=== PATIENT | male | born 1965 | race Caucasian/White ===

== ENCOUNTER 2023-04-24 08:09 | Emergency (ER) | payer OTHER, SELFPAY ==
--- NOTE | ~2023-04-24 | XR_ITS ---
EXAMINATION: XR chest 2V DATE: 04/24/2023 08:40 INDICATION: Shortness of breath and cough TECHNIQUE: frontal and lateral views of the chest were obtained. COMPARISON: None FINDINGS: Opacity at the anteromedial right lung base most likely a small right paracardial fat pad and associa ivett atelectasis in the right middle lobe versus less likely pneumonia. No pulmonary edema, pleural ef fusion or pneumothorax. The cardiomediastinal silhouette is normal. There are bridging osteophytes at multiple levels in the spine, consistent with diffuse idiopathic skeletal hyperostosis (DISH). IMPRESSION: 1. Right middle lobe atelectasis versus less likely pneumonia. Reviewed, dictated and finalized at location L.
[2023-04-24 08:24] VITALS: BP 183/108; PULSE 73; RESP 18; TEMP 36.4; O2SAT 98
[2023-04-24 08:27] VITALS: BP 183/108; PULSE 73; RESP 18; TEMP 36.4; O2SAT 98
--- NOTE | 2023-04-24 08:37 | ED.GENADULT ---
HPI - General Adult General Chief complaint: Shortness of Breath/Dyspnea Stated complaint: Shortness of Breath Source: patient Mode of arrival: ambulatory Limitations: no limitations History of Present Illness HPI narrative: Presents for evaluation of respiratory symptoms for the last week. Symptoms include productive cough of clear sputum and shortness of breath. He has some lower extremity swelling as well. No fever, chills, nausea, vomiting, otalgia, sore throat. No recent sick contacts to his knowledge. He smokes half a pack per day. He has an underlying history of hypertension, hyperlipidemia, diabetes, and CHF. He is compliant with lasix 40mg BID. No personal history of DVT. Denies any chest pain. Related Data Home Medications Medication Instructions Recorded Confirmed aspirin 81 mg tablet 81 mg PO DAILY 04/24/23 04/24/23 atorvastatin 40 mg tablet 40 mg PO DAILY 04/24/23 04/24/23 carvedilol 12.5 mg tablet 12.5 mg PO BID 04/24/23 04/24/23 furosemide 40 mg tablet 40 mg PO DAILY 04/24/23 04/24/23 lisinopril 40 mg tablet mg 04/24/23 metformin 500 mg tablet 500 mg PO BID 04/24/23 04/24/23 simvastatin 40 mg tablet 40 mg PO BID 04/24/23 04/24/23 Allergies Allergy/AdvReac Type Severity Reaction Status Date / Time No Known Allergies Allergy Unverified 01/04/19 11:26 Review of Systems Review of Systems: CONSTITUTIONAL: Denies fever, chills, or sweats. EYES: Denies visual changes, redness, or discharge. ENT: Denies rhinorrhea, congestion, sore throat, or otalgia. CARDIOVASCULAR: Reports BLE edema. Denies chest pain, palpitations RESPIRATORY: Reports productive cough of clear sputum and shortness of breath GASTROINTESTINAL: Denies abdominal pain, nausea, vomiting, or diarrhea. GENITOURINARY: Denies dysuria or hematuria. SKIN: Denies rash or itching. MUSCULOSKELETAL: Denies back pain, joint pain, or myalgia. NEUROLOGIC: Denies headache, numbness, dizziness, or weakness. PSYCHIATRIC: Denies anxiety or depression. [facility] Past Medical History Medical History CHF (congestive heart failure) Diabetes Hyperlipidemia Hypertension Surgical History Surgical History No pertinent past surgical history Family History Family History Mother Family history non-contributory Social History Social History Smoking packs per day: 0.5 Smoking cigarettes per day: 10.0 Smoking status: Current every day smoker Alcohol intake: never Substance use: current Substance use type: marijuana Living arrangements: alone Gender identity (if verbalized by the patient): Male Spiritual care concerns: No Exam Narrative: GENERAL: Well-appearing, well-nourished, and in no acute distress. HEAD: Normocephalic, atraumatic. EYES: PERRLA and EOMI. ENT: Nares clear, no rhinorrhea or epistaxis. Mucous membranes moist. Oropharynx without tonsillar hypertrophy exudate or other lesions. Bilateral TMs pearly tadeo nonbulging NECK: Supple. No adenopathy or masses. No carotid bruits or JVD CHEST: Rales and wheezing noted in posterior lung lewis bilaterally HEART: Regular rate and rhythm. No murmur heard. Normal peripheral pulses. ABDOMEN: Soft, nontender, nondistended, normal active bowel sounds. EXTREMITIES: Trace pitting edema to BLE. Normal range of motion. SKIN: Warm, dry, no rash. NEURO: No focal deficits. Alert and oriented x3. PSYCH: Normal mood and affect. Course Course Emergency Course: This is a 57-year-old male who presented for evaluation of respiratory symptoms. CXR concerning for pneumonia. Given solumedrol and neb treatment here. Will dc with prednisone, azithromycin and augmentin. Follow up with primary provider. Go to the ER for worsening symptoms. Pt in a
[2023-04-24] MEDS: methylPREDNISolone SOD SUCC 125 MG VIAL IM (08:45)
[2023-04-24] MEDS: ALBUTEROL SULFATE NEB 2.5 MG/3 ML INH INHALATION (08:47)
[2023-04-24] MEDS: IPRATROPIUM BR 0.02% INH SOLN 0.5 MG/2.5 ML VIAL INHALATION (08:47)
== END 2023-04-24 09:37 | disposition home or self-care (01) ==
PROVIDERS: Emergency Provider Nurse Practitioner
DX: J18.9 Pneumonia, unspecified organism (principal); Z20.822 Contact with and (suspected) exposure to COVID-19; F17.210 Nicotine dependence, cigarettes, uncomplicated; I11.0 Hypertensive heart disease with heart failure; I50.9 Heart failure, unspecified; E11.9 Type 2 diabetes mellitus without complications; E78.5 Hyperlipidemia, unspecified; Z79.84 Long term (current) use of oral hypoglycemic drugs
CPT/HCPCS: 71046; 87426; 94640; 96372; 99213; C9803; G0463; J2930

== ENCOUNTER 2023-08-21 10:02 | Emergency (ER) | payer OTHER, SELFPAY ==
--- NOTE | ~2023-08-21 | XR_ITS ---
Clinical Indication: Cough PA and lateral views of the chest: Comparison: 04/24/2023 Findings: The lungs are clear, without evidence of focal consolidation or pleural effusion. Cardiome diastinal silhouette is within normal limits. Bones and soft tissues are unremarkable. Impression: Normal chest. Reviewed, dictated and finalized at location . TIME OPERATOR Impression: Normal chest.
[2023-08-21 10:06] VITALS: BP 210/118; PULSE 80; RESP 20; TEMP 36.4; O2SAT 97
--- NOTE | 2023-08-21 10:29 | ED.URI ---
HPI - URI/Sore Throat General Chief Complaint: Upper Respiratory Infection Stated Complaint: Shortness of Breath Source: patient and RN notes reviewed History of Present Illness HPI Narrative: 58 yo M presents to urgent care with complaints of cough, wheezing, and SOB x 2 weeks. Pt states the cough is sometimes productive with clear phlegm and other times feels like it's stuck in his chest. Denies any chest pain, back pain, fevers, chills, N/V/D. Pt noted to have HTN in clinic. Pt states he hasn't had a PCP in about a year due to insurance reasons. Pt states he does have some BP meds at home from a year ago. Related Data Allergies Allergy/AdvReac Type Severity Reaction Status Date / Time No Known Allergies Allergy Verified 08/21/23 10:21 Review of Systems Review of Systems: CONSTITUTIONAL: Denies fever, chills, or sweats. EYES: Denies visual changes, redness, or discharge. ENT: Denies otalgia and sore throat CARDIOVASCULAR: Denies chest pain, palpitations, or edema. GASTROINTESTINAL: Denies abdominal pain, nausea, vomiting, or diarrhea. GENITOURINARY: Denies dysuria or hematuria. SKIN: Denies rash or itching. MUSCULOSKELETAL: Denies back pain, joint pain, or myalgia. NEUROLOGIC: Denies headache, numbness, or weakness. Pertinent positives per HPI. [facility] Past Medical History Medical History CHF (congestive heart failure) Diabetes Hyperlipidemia Hypertension Surgical History Surgical History No pertinent past surgical history Family History Family History Mother Family history non-contributory Social History Social History Smoking packs per day: 0.5 Smoking cigarettes per day: 10.0 Smoking status: Current every day smoker Alcohol intake: never Substance use: current Substance use type: marijuana Living arrangements: alone Gender identity (if verbalized by the patient): Male Spiritual care concerns: No Comments At the time of my signature, I reviewed and agree with the nursing past medical, surgical, social, and family history. There is no relevant family history pertinent to the patient complaint. Exam Narrative: GENERAL: This is a well-nourished, well-developed patient, in no apparent distress. HEAD: normocephalic, atraumatic. EYES: Sclera clear/white. Vision is grossly intact. EARS: External ears normal, auditory canals clear and without drainage, TMs normal without perforation. Hearing grossly intact. NOSE: External nose normal with no obvious nasal discharge, nares without redness, no rhinorrhea. THROAT: Mucous membranes moist, posterior pharynx clear. NECK: Neck supple, non-tender without lymphadenopathy, masses or thyromegaly. CARDIOVASCULAR: Regular rate RESPIRATORY: Breath sounds equal bilaterally. + wheezing throughout SKIN: warm, intact with no suspicious lesions or rash, good texture and turgor. NEURO: awake, alert, and oriented to person, place and time. There were no obvious focal neurologic abnormalities. BACK: Nontender without deformity or crepitus. No flank tenderness. Course Course Level of Care: Express Care Visit Vital Signs Vital signs: Vital Signs Temperature 97.6 F 08/21/23 10:06 Pulse Rate 80 08/21/23 10:06 Respiratory Rate 20 08/21/23 10:06 Blood Pressure 210/118 H 08/21/23 10:06 Pulse Oximetry 97 08/21/23 10:06 Oxygen Delivery Room Air 08/21/23 10:06 Temperature 97.6 F 08/21/23 10:06 Pulse Rate 80 08/21/23 10:06 Respiratory Rate 20 08/21/23 10:06 Blood Pressure 210/118 H 08/21/23 10:06 Pulse Oximetry 97 08/21/23 10:06 Oxygen Delivery Room Air 08/21/23 10:06 reviewed MDM - URI/Sore Throat MDM Narrative Medical decision making narrative: Pt's BP was measu
[2023-08-21] MEDS: ALBUTEROL SULFATE NEB 2.5 MG/3 ML INH INHALATION (10:43)
[2023-08-21] MEDS: methylPREDNISolone SOD SUCC 125 MG VIAL IM (10:43)
[2023-08-21] MEDS: IPRATROPIUM BR 0.02% INH SOLN 0.5 MG/2.5 ML VIAL INHALATION (10:43)
[2023-08-21 11:27] VITALS: BP 160/100
== END 2023-08-21 11:27 | disposition home or self-care (01) ==
PROVIDERS: Emergency Provider Nurse Practitioner Family
DX: R06.2 Wheezing (principal); I11.0 Hypertensive heart disease with heart failure; I50.9 Heart failure, unspecified; E11.9 Type 2 diabetes mellitus without complications; E78.5 Hyperlipidemia, unspecified; F17.210 Nicotine dependence, cigarettes, uncomplicated
CPT/HCPCS: 71046; 94640; 96372; 99213; G0463; J2930

== ENCOUNTER 2023-09-05 09:45 | Outpatient (CLI) | payer OTHER, SELFPAY ==
[2023-09-05 19:33] LABS: Basophils Absolute Auto 0.1 K/mm3 (0.0-0.1); Basophils Percent Auto 0.8 % (0.2-1.2); Eosinophils Absolute Auto 0.2 K/mm3 (0-0.3); Hematocrit 54.2 % (42.0-52.0); Hemoglobin 17.5 g/dL (14.0-18.0); Immature Granulocyte Absolute 0.02 K/mm3 (0.00-0.031); Immature Granulocyte Percent A 0.2 % (0-0.5); Lymphocytes Absolute Auto 2.47 K/mm3 (0.9-3.2); Lymphocytes Percent Auto 27.6 % (18.3-44.2); Mean Corpuscular HGB Conc 32.3 g/dl (32-36); Mean Corpuscular Hemoglobin 29.3 pg (26-34); Mean Corpuscular Volume 90.8 fl (80-100); Mean Platelet Volume 11.3 fl (7.4-10.4); Monocytes Absolute Auto 0.5 K/mm3 (0.1-0.6); Neutrophils Absolute Auto 5.7 K/mm3 (1.3-6.7); Neutrophils Percent Auto 63.4 % (45.5-73.1); Platelet Count Result 217 k/mm3 (150-375); Red Blood Count 5.97 M/mm3 (4.6-6.20); Red Cell Distribution Width 13.4 % (11.5-14.5)
[2023-09-05 19:52] LABS: Alanine Aminotransferase 33 U/L (6-50); Albumin Level 4.6 g/dL (3.5-5.1); Alkaline Phosphatase 49 U/L (38-126); Anion Gap 11 mmol/L (8-16); Aspartate Amino Transferase 24 U/L (17-59); Bilirubin,Total 0.7 mg/dL (0.2-1.3); Blood Urea Nitrogen 16 mg/dL (9-20); Calcium 9.5 mg/dL (8.4-10.2); Carbon Dioxide 30 mmol/L (22-30); Chloride 97 mmol/L (98-107); Cholesterol 222 mg/dL (0-200); Estimated Glomerular Filt Rate > 60; Glucose 131 mg/dL (65-110); HDL Direct 46 mg/dL; Magnesium 2.4 mg/dL (1.6-2.3); Potassium 3.9 mmol/L (3.4-5.0); Sodium 138 mmol/L (137-145); Triglycerides 187 mg/dL (<150)
[2023-09-05 20:03] LABS: LDL Cholesterol Direct 135 mg/dL
[2023-09-05 20:16] LABS: Hemoglobin A1C 7.2 % (<5.7)
[2023-09-05 20:18] LABS: Creatinine Urine 65.1 mg/dL
[2023-09-05 20:28] LABS: MALB Creatinine Ratio < 9.2 mg/g (0-30); Microalbumin Urine Random < 6.0 mg/L (0-16.7)
== END 2023-09-05 09:46 | disposition home or self-care (01) ==
PROVIDERS: PCP Nurse Practitioner Adult Health; Visit Provider Nurse Practitioner Adult Health
DX: E11.9 Type 2 diabetes mellitus without complications (principal); I10 Essential (primary) hypertension
CPT/HCPCS: 36415; 80053; 80061; 82043; 83036; 83735; 84443; 85025

== ENCOUNTER 2025-01-12 08:12 | Emergency (ER) | payer OTHER, SELFPAY ==
--- NOTE | ~2025-01-12 | XR_ITS ---
XR chest 2V Ordering provider: Gina Whitfield NP History: 59 years Male with . cough congestion . Comparison: August 21, 2023 FINDINGS: MEDIASTINUM: The cardiac silhouette is not enlarged. LUNGS: No infiltrates, effusions or pneumothorax. OTHER: No free air under the diaphragm. Degenerative changes of the spine. IMPRESSION: No acute cardiopulmonary pathology. Reviewed, dictated and finalized at location A.
[2025-01-12 08:18] VITALS: BP 190/100; PULSE 87; RESP 20; TEMP 36.7; O2SAT 97
--- NOTE | 2025-01-12 08:29 | ED_ITS ---
HPI - URI/Sore Throat General Chief Complaint: Upper Respiratory Infection Stated Complaint: Chest Congestion/Cough/Nasal Congestion Time Seen by Provider: 01/12/25 08:29 Source: patient, RN notes reviewed and old records reviewed Mode of arrival: ambulatory Limitations: no limitations History of Present Illness HPI Narrative: 59 year old male who presents to [facility] care with complaints of cough, nasal congestion, ears feel plugged and has noted some wheezing at times for the past 3 days. Patient reports that he has not had any known fevers, chills or sweats. Patient reports that he does have an inhaler at home and has used his inhaler as needed. Patient admits to continued use of tobacco daily of 1/2 ppd of cigarettes. Patient reports that he has bee taking Benadryl ad also using Flonase daily for his symptoms. Patient reports no known fevers, states some chills no sweats. MD elicited complaint: cough and sore throat Pertinent past history: other (CHF, HTN) Onset (ago): day(s) (3) Consistency: constant Severity: moderate Able to tolerate fluids by mouth: Yes Treatments prior to arrival: other (Benadryl and Flonase and using inhaler) Related Data Allergies Allergy/AdvReac Type Severity Reaction Status Date / Time MOLD Allergy Unknown Unknown Uncoded 01/12/25 08:22 Review of Systems Review of Systems: CONSTITUTIONAL: Reports malaise, chills, sweats, unknown if fever. EYES: Denies visual changes, redness, or discharge. ENT: Reports rhinorrhea, congestion, sinus pain, ears feel plugged and no sore throat. CARDIOVASCULAR: Denies chest pain, palpitations, or edema. RESPIRATORY: Reports cough.? states some dyspnea with exertion. GASTROINTESTINAL: Denies abdominal pain, nausea, vomiting, diarrhea SKIN: Denies rash or itching. MUSCULOSKELETAL: Denies myalgia. NEUROLOGIC: Denies headache. All systems reviewed & are unremarkable except as noted in HPI and below PMFSH Past Medical History Medical History Heart disease CHF exacerbation Allergies Asthma Diabetes Hyperlipidemia Hypertension CHF (congestive heart failure) Surgical History Surgical History No pertinent past surgical history Family History Family History Mother Family history non-contributory Father Diabetes mellitus Hypertension Heart disease Sibling Cancer Social History Social History Smoking packs per day: 0.5 Smoking cigarettes per day: 10.0 Smoking status: Current every day smoker Alcohol intake: never Substance use: former Substance use type: marijuana Lack of Transportation: No Lack of Food: Never True Concerned About Future Housing: No Difficulty Paying for Meds: YES Currently Unemployed: No Education: High School Diploma/GED Difficulty w/ Childcare or Family Care: No Living arrangements: alone Occupation/Education: occupation Additional occupation/education comments: [employer] Gender identity (if verbalized by the patient): Male Spiritual care concerns: No Agree to blood products: Yes Comments At time of signature, agree with nursing past medical, surgical, social and family history. There is no relevant family history pertinent to the presenting complaint Exam Narrative: GENERAL:Chronic ill -appearing, well-nourished, and in no acute distress. HEAD: Normocephalic EYES: PERRLA, conjunctivae clear ENT: Nares clear, turbinates edematous and erythematous, clear discharge. Mucous membranes moist. TM pearly tadeo with dull light reflex bilaterally; no tragal tenderness. Oropharynx erythematous without lesions. Tonsils not enlarged and without exudate, no drooling, no hoarseness, no trismus, uvula midline.post nasal drainage NECK: Supple. No lymphadenopathy CHEST: Scattered wheezing in bases on auscultation, breath sounds equal.+ wheezing, no rhonchi, rales, or stridor. No respiratory distress, speaks in full sentences.cough which is productive at times, SAO2 97% on room air HEART: Regular rate and rhythm. No murmur heard. SKIN: Warm, dry, no rash. NEURO: Alert and oriented x3. PSYCH: Normal mood and affect Course Course Emergency Course: Patient is aware of diagnosis, understands and agrees to treatment plan.? Anticipatory guidance given.? Patient agrees to follow-up as directed and is aware of reasons to seek care at the emergency department. Portions of this record may have been created with voice recognition software Level of Care: Express Care Visit Vital Signs Vital signs: Vital Signs Temperature 36.7 C 01/12/25 08:18 Pulse Rate 87 01/12/25 08:18 Respiratory Rate 20 01/12/25 08:18 Blood Pressure 190/100 H 01/12/25 08:18 Pulse Oximetry 97 01/12/25 08:18 Oxygen Delivery Room Air 01/12/25 08:18 Temperature 36.7 C 01/12/25 08:18 Pulse Rate 87 01/12/25 08:18 Respiratory Rate 20 01/12/25 08:18 Blood Pressure 162/96 H 01/12/25 08:34 Pulse Oximetry 97 01/12/25 08:18 Oxygen Delivery Room Air 01/12/25 08:18 Reviewed MDM - URI/Sore Throat MDM Narrative Medical decision making narrative: Differential diagnosis considered: Mike virus, strep pharyngitis, allergic rhinitis, upper respiratory tract infection, sinusitis, rhinosinusitis, nasopharyngitis. viral pharyngitis, otitis media, otitis externa, pneumonia, bronchitis, viral cough syndrome, viral syndrome, and influenza.? Exam findings show no acute concerns or changes; patient is non-toxic appearing and is in no distress.? Patient is appropriate for outpatient treatment and follow-up. Differential Diagnosis Differential diagnosis: Likely upper respiratory infection, viral infection, bronchitis and other (cough and congestion) Medical Records Attestation: I reviewed the patient's medical records. Lab Data Attestation: I reviewed the patient's lab results. Imaging Data My impression: no acute cardiopulmonary pathology Radiologist's impression: [place] [address] XRay Report Signed Patient: Tony Martinez : 1965 MR#: [id number] Age: 59 Acct:[id number] Loc: [facility] ADM Date: 01/12/25Attending Dr: Ordering Physician: Gina Whitfield APRN Date of Service: 01/12/25 Procedure(s): XR chest 2V Accession Number(s): [id number] cc: Gina Whitfield APRN; UNKNOWN,DOCTOR~ XR chest 2V Ordering provider: Gina Whitfield NP History: 59 years Male with . cough congestion . Comparison: August 21, 2023 FINDINGS: MEDIASTINUM: The cardiac silhouette is not enlarged. LUNGS: No infiltrates, effusions or pneumothorax. OTHER: No free air under the diaphragm. Degenerative changes of the spine. IMPRESSION: No acute cardiopulmonary pathology. Reviewed, dictated and finalized at location A. Please be advised this is a medical document. It is intended for [id number] communication. It is written in medical language and may contain unfamiliar abbreviations or verbiage. Medical documents are intended to carry relevant information, facts as evident, and the clinical opinion of the practitioner at the time of the encounter. This report may have been done utilizing a voice recognition system. Attempts have been made to correct errors. However, there may be uncorrected grammatical, spelling, and recognition errors present. The file time of this note does not necessarily represent the time of service. Dictated By: Lenny Noble MD 01/12/25 0850 Signed By: <Electronically signed by Lenny Noble MD in OV> Critical Care Time Critical Care Time Critical Care Time: No Discharge Plan Discharge Clinical Impression: Bronchitis Patient Disposition: Home Condition: Stable Instructions: Antibiotic Form, Acute Bronchitis (ED) Additional Instructions: Increase fluids especially juices and water [id number] cough and cold medicine of your choice for your symptoms Zyrtec Claritin or Minnie daily include Coricidin brand decongestant Continue your inhaler/nebulizer as directed Steroids as directed--take with food heat to the face 20-30 minutes 4-6 times a day for pain Salt water gargles, throat lozenges or throat sprays as desired Antibiotic as directed--finished the medication If your symptoms persist, change or worsen significantly before you can contact your personal physician then please, without delay, go to the emergency department for further evaluation. Follow-up with PCP in 7-10 days or sooner if needed Follow up with PCP soon in regards to your blood pressure which is elevated above threshold for referral. Blood pressure above 120/80 may indicate pre- hypertension. Repeat pressure 162/96 Patient Language: Romansh Prescriptions: New prednisone 20 mg tablet 20 mg PO BID Qty: 10 0RF Rx Instructions: Take with food taken a.m. and early p.m. before 6 azithromycin 250 mg tablet See Rx Instructions .ROUTE .COMPLEX Qty: 6 0RF Rx Instructions: For 250 mg dose pack: take 500 mg today (day 1), then 250 mg for 4 days (days 2-5) No Action carvedilol 12.5 mg tablet 12.5 mg PO Q12H Qty: 180 3RF Rx Instructions: must administer with a meal/food simvastatin 40 mg tablet See Rx Instructions .ROUTE .COMPLEX Qty: 90 3RF Dose Instruction: TAKE 1 TABLET BY MOUTH EVERY DAY Rx Instructions: TAKE 1 TABLET BY MOUTH EVERY DAY albuterol sulfate 90 mcg/actuation HFA aerosol inhaler See Rx Instructions .ROUTE .COMPLEX Qty: 8.5 6RF Dose Instruction: INHALE 2 PUFFS 4 TIMES A DAY NEEDED FOR SHORTNESS OF BREATH OR FOR WHEEZE Rx Instructions: INHALE 2 PUFFS 4 TIMES A DAY NEEDED FOR SHORTNESS OF BREATH OR FOR WHEEZE furosemide 40 mg tablet 40 mg PO DAILY Qty: 90 3RF lisinopril 40 mg tablet 40 mg PO DAILY Qty: 90 3RF metformin 500 mg tablet 500 mg PO BID Qty: 180 3RF Follow-up/Referrals: UNKNOWN,DOCTOR [Primary Care Provider] - Stand Alone Forms: Work/School Release IP Time of Disposition: 09:00 Quality Madina Coma Scale Eyes: Open Verbal: Oriented and Alert Motor: Follows Commands Madina Coma Total Score: 15
[2025-01-12 08:34] VITALS: BP 162/96
--- OUTSIDE RECORDS SUMMARY | 2025-01-12 08:36 | XMS_ITS | Encounter Summary ---
Author Organization [facility] Address [address] [place] [id number] Care Team Providers Care [employer] Name Role Phone Parish Ruiz MD Primary Care Provider [phone] Miscellaneous, Not In File Primary Care Provider Unavailable Bob Avitia MD Primary Care Provider [phone] Encounter Details Date Type Department Care Team (Late st Contact Info) Description 12/25/2016 Orders Only [facility] MD [address] [place] [id number] Social History Tobacco Use Types Packs/Day Years Used Date Smoking Tobacco: Heavy Smoker Comments:Smoking History Pac ks/day: 1 Packs Alcohol Use Standard Drinks/Week Comments Yes 0 (1 standard drink = 0.6 oz pur e alcohol) Sex and Gender Information Value Date Recorded Sex Assigned at Not on file 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 Historical Provider [facility] Final Result documented in this encounter Visit Diagnoses Not on filedocumented in this encounter Care Teams [employer] Relationship Specialty Start Date End Date [place] [id number] PCP - General 12/25/16 09/02/20 Miscellaneous, Not In File PCP - General 09/03/2009/07 Bob Avitia MD [address] [place] [address] PCP - General Family Medicine 09/08/20 documented as of this encounter
--- OUTSIDE RECORDS SUMMARY | 2025-01-12 08:36 | XMS_ITS | Clinical Summary ---
Author Organization [facility] Address [address] [place] [address] Phone Care Team Providers Care Executive Sales Assistant Name Role Phone Parish Ruiz MD Unavailable [phone] Allergies No known active allergies Medications aspirin EC 81 MG Tablet Delayed Response Take 81 mg by mouth daily. Active furosemide (LASIX) 20 MG TabletIndication s:Chronic obstructive pulmonary disease, unspecified COPD type (HCC) Take 1 Tab by mouth daily. 90 Tab 1 0 Active lisinopril (PRINIVIL, ZESTRIL) 40 MG TabletIndication s:Chronic obstructive pulmonary disease, unspecified COPD type (HCC) Take 1 Tab by mouth daily. 90 Tab 1 0 Active metoprolol succinate (TOPROL-XL) 200 MG TABLET SR 24 HRIndications:Ch ronic obstructive pulmonary disease, unspecified COPD type (HCC) Take 1 Tab by mouth daily. 90 Tab 1 0 Active spironolactone (ALDACTONE) 25 MG TabletIndication s:Chronic obstructive pulmonary disease, unspecified COPD type (HCC) Take 1 Tab by mouth daily. 90 Tab 1 0 Active albuterol 108 (90 Base) MCG/ACT Aerosol SolutionIndicati ons:Chronic obstructive pulmonary disease, unspecified COPD type (HCC) take 2 Puffs by inhalation every 4 hours as needed (shortness of breath). 2 Inhaler 2 0 Active metFORMIN (GLUCOPHAGE) 500 MG TabletIndication s:Type 2 diabetes mellitus with hyperglycemia, without long-term current use of insulin (HCC) Take 1 Tab by mouth 2 times daily (with meals). 180 Tab 3 0 Active Blood Glucose Monitoring Suppl DeviceIndication s:Type 2 diabetes mellitus with hyperglycemia, without long-term current use of insulin (HCC) Diagnosis: Diabetes type 2 Blood testing frequency: once a day 1 Each 0 Active Glucose Blood (BLOOD GLUCOSE TEST STRIPS) StripIndications :Type 2 diabetes mellitus with hyperglycemia, without long-term current use of insulin (HCC) Use to test blood sugar once daily as directed. 100 Each 3 0 Active Lancets MiscIndications: Type 2 diabetes mellitus with hyperglycemia, without long-term current use of insulin (HCC) Use as directed 100 Lancet 3 0 Active Lancet Device MiscIndications: Type 2 diabetes mellitus with hyperglycemia, without long-term current use of insulin (HCC) Use as directed to test blood sugar. 1 Each 0 Active atorvastatin (LIPITOR) 40 MG TabletIndication s:Type 2 diabetes mellitus with hyperglycemia, without long-term current use of insulin ([facility]) Take 1 Tab by mouth daily. 30 Tab 11 0 Active Active Problems Problem Noted Date Diagnosed Date COPD (chronic obstructive pulmonary disease) Erythrocytosis 02/04/2020 Type 2 diabetes mellitus 02/04/2020 Asthma 01/29/2020 Noncompliance 06/24/2019 CHF (congestive heart failure) 01/23/2019 HTN (hypertension), benign 11/27/2018 Overview (01/23/2019): Last Assessment & Plan: Monitor. Will adjust meds depending on echo findings. Lisinopril increased 3/7 Tobacco use 07/13/2016 Overview (01/23/2019): Tobacco use Resolved Problems Problem Noted Date Diagnosed Date Resolved Date Prediabetes 02/04/2020 02/04/2020 Immunizations Immunization Administration Dates Next Due Pneumococcal Vaccine Adult - 23 Valent 9 Family History Medical History Relation Name Comments Diabetes Father Heart Attack Father Hypertension Father Diabetes Mother Hypertension Mother Relation Name Status Comments Father Mother Social History Tobacco Use Types Packs/Day Years Used Date Smoking Tobacco: Every Day Cigarettes Smokeless Tobacco: Never Tobacco Cessation:Ready to Q uit: No; Counseling Given: Yes Alcohol Use Standard Drinks/Week Comments Not Currently 5 (1 standard drink = 0.6 oz pur e alcohol) rarely PHQ-2 Answer Date Recorded Total Score - Questions 1-9 0 01/22 Sex and Gender Information Value Date Recorded Sex Assigned at Not on file Legal Sex Male 12:21 AM CDT Gender Identity Not on file Sexual Orientation Not on file Last Filed Vital Signs Vital Sign Reading Time Taken Comments Blood Pressure 112/76 03/12/2020 8:10 AM CDT Pulse 65 03/12/2020 8:10 AM CDT Temperature 36.5 C (97.7 F) 03/12/2020 8:10 AM CDT Respiratory Rate 16 03/12/2020 8:10 AM CDT Oxygen Saturation 93% 03/12/2020 8:10 AM CDT Inhaled Oxygen Concentration - - Weight 113.5 kg (250 lb 3.2 oz) 03/12/2020 8:10 AM CDT Height 172.7 cm (5' 8 ) 03/12/2020 8:10 AM CDT Body Mass Index 38.04 03/12/2020 8:10 AM CDT Plan of Treatment Health Maintenance Due Date Last Done Comments Diabetes: Eye Exam 1965 Diabetes: Foot Exam 1965 Hepatitis C Virus (HCV) Screening 1965 TdaP Immunization 1965 Hepatitis B Immunization (1 of 3 - 19+ 3-dose series) 1984 Colonoscopy 2010 Colorectal Cancer Screening 2010 Cologuard 2015 Immunochemical Fecal Occult Blood 2015 Zoster Immunization (1 of 2) 2015 Pneumococcal Immunization (50+ years) (2 of 2 - PCV) 02/13/2020 02/12/2019 Diabetes: Hemoglobin A1c 08/06/2020 020, 06/24/2019, 11/28/2018 Diabetes: Nephropathy Screening 02/03/2021 02/04/2020, 02/04/2020, 06/24/2019, Additional history exists Influenza Immunization (#1) 2024 SARS-COV-2 Immunization ( - season) 2024 Respiratory Syncytial Virus (RSV) Immunization (Adult) (1 - 1-dose 75+ series) 2040 Pneumococcal Immunization Combined Discontinued 02/12/2019 PSA Discussion Discontinued 06/24/2019 Meningococcal Immunization (ACWY) Aged Out No longer eligible based on patient's age to complete this topic Rotavirus Immunization Aged Out No lo nger eligible based on patient's age to complete this topic Procedures Procedure Name Priority Date/Time Associated Diagnosis Comments CMP (COMPREHENSIVE METABOLIC PANEL) Routine 02/04/2020 9:20 AM CDT HTN (hypertension), benign HEMOGLOBIN A1C W/ ESTIMATED GLUCOSE Routine 02/04/2020 9:20 AM CDT Prediabetes PSA SCREEN Routine 06/24/2019 9:25 AM CDT Prostate cancer screening from Last 3 Months or Most Recently Relevant to Health Maintenance Results * (ABNORMAL) HEMOGLOBIN A1C W/ ESTIMATED GLUCOSE (02/04/2020 9:20 AM CDT) HGB-A1C 7.0(H) 4.0 - 6.0 % 02/04/2020 12:24 PM CDT [facility] Est Average Glucose 154.2 mg/dL 02/04/2020 12:24 PM CDT [facility] Blood specimen (specimen) Venipuncture / Unknown 02/04/2020 9:20 AM CDT 02/04/2020 9:20 AM CDT Narrative [facility] - 02/04/2020 12:24 PM CDT HEMOGLOBIN A1C: DIABETIC PATIENTS: WELL-CONTROLLED: 6.2 - 7.0 INTERMEDIATE WELL-CONTROLLED: 7.0 - 9.0 POORLY-CONTROLLED: >9.0 us Dalton Chahal ADMITTING SUPERVISOR, STORAGE BATTERY INSPECTOR AND TESTER CHEMISTRY ORDERA BLES Final Result [facility] [address] [place] [address] * (ABNORMAL) CMP (COMPREHENSIVE METABOLIC PANEL) (02/04/2020 9:20 AM CDT) SODIUM 139 136 - 144 mmol/L 02/04/2020 1:00 PM [facility] POTASSIUM 4.6 3.5 - 5.1 mmol/L 02/04/2020 1:00 PM [facility] CHLORIDE 100 100 - 110 mmol/L 02/04/2020 1:00 PM [facility] CO2, VENOUS 29 22 - 32 mmol/L 02/04/2020 1:00 PM [facility] ANION GAP 14.6 8.0 - 20.0 mmol/L 02/04/2020 1:00 PM T [facility] GLUCOSE 117(H) 70 - 99 mg/dL 02/04/2020 1:00 PM [facility] BUN 14 6 - 20 mg/dL 02/04/2020 1:00 PM [facility] CREATININE, BLOOD 0.84 0.80 - 1.30 mg/dL 02/04/2020 1:00 PM [facility] BUN/CREATININE RATIO 17 12 - 20 ratio 02/04/2020 1:00 PM [facility] TOTAL PROTEIN 7.8 6.0 - 8.3 g/dL 02/04/2020 1:00 PM [facility] ALBUMIN 4.5 3.5 - 5.2 g/dL 02/04/2020 1:00 PM [facility] Comment: The colormetric methods used for the determination of Albumin may lead to falsely elevated test results in patients suffering from renal failure or insufficiency due to interference with other proteins. A/G RATIO 1.4 1.0 - 2.0 02/04/2020 1:00 PM [facility] CALCIUM 9.9 8.9 - 10.3 mg/dL 02/04/2020 1:00 PM [facility] T BILI 0.3 <=1.2 mg/dL 02/04/2020 1:00 PM [facility] SGOT (AST) 15 <=40 U/L 02/04/2020 1:00 PM [facility] SGPT (ALT) 23 <=41 U/L 02/04/2020 1:00 PM CDT [facility] ALKALINE PHOSPHATASE 59 40 - 130 U/L 02/04/2020 1:00 PM CDT [facility] GFR, EST. NONAFRICAN >60 >=60 02/04/2020 1:00 PM CDT [facility] GFR, EST. >60 >=60 020 1:00 PM CDT [facility] Comment: Creatinine Clearance is the preferred criteria for selecting drug dose adjustments in renally impaired patients. The GFR is provided as additional pertinent clinical information. GFR is reported in mL/min/1.73 sq m. Blood specimen (specimen) Venipuncture / Unknown 02/04/2020 9:20 AM CDT 02/04/2020 9:20 AM CDT Dalton Chahal APRN, MYKEL CHEMISTRY ORDERA BLES Final Result Performing Organization Address City/[facility]/ZIP Co de Phone Number [facility] [address] [place] [address] * PSA SCREEN (06/24/2019 9:25 AM CDT) PSA SCREEN, TOTAL 0.53 <=4.00 ng/mL 06/24/2019 3:34 PM CDT [facility] Blood specimen (specimen) Venipuncture / Unknown 06/24/2019 9:25 AM CDT 06/24/2019 1:22 PM CDT Narrative [facility] - 06/24/2019 3:34 PM CDT PSA NOTE: The PSA value should be used in conjunction with information available from clinical evaluation and other diagnostic procedures. Dalton Chahal APRN, MYKEL CHEMISTRY ORDERA BLES Final Result [facility] [address] [place] [address] from Last 3 Months or Most Recently Relevant to Health Maintenance Insurance Care Teams Executive Sales Assistant Relationship Specialty Start Date End [place] [address] Internal Medicine 12/25/16
--- OUTSIDE RECORDS SUMMARY | 2025-01-12 08:36 | XMS_ITS | Encounter Summary ---
Author Organization [facility] Address [address] [facility] [address] [place] [address] Care Team Providers Care Hot Mill Observer Name Role Phone Parish Ruiz MD Primary Care Provider [phone] Miscellaneous, Not In File Primary Care Provider Unavailable Bob Avitia MD Primary Care Provider [phone] Encounter Details Date Type Department Care Team (Late st Contact Info) Description 12/27/2016 Orders Only [facility] And[facility] Dave MD [address] [place] [id number] Social History Tobacco Use Types Packs/Day Years Used Date Smoking Tobacco: Heavy Smoker Comments:Smoking History Pac ks/day: 1 Packs Alcohol Use Standard Drinks/Week Comments Yes 0 (1 standard drink = 0.6 oz pur e alcohol) Sex and Gender Information Value Date Recorded Sex Assigned at Not on file Legal Sex Male 4:56 PM MEDIA PRODUCTION MANAGER Gender Identity Not on file Sexual Orientation Not on file documented as of this encounter Plan of Treatment Not on file documented as of this encounter Procedures Procedure Name Priority Date/Time Associated Diagnosis Comments CARDIOLOGY REPORT 12/27/2016 CARDIOLOGY REPORT 12/27/2016 documented in this encounter Results * CARDIOLOGY REPORT (12/27/2016) Anatomical Region Laterality Modality Other Narrative 12/27/2016 Ordered by an unspecified provider. Historical Provider [facility] TAM[facility]ENDOZA Final Result * CARDIOLOGY REPORT (12/27/2016) Anatomical Region Laterality Modality Other Narrative 12/27/2016 Ordered by an unspecified provider. us Historical Provider [facility] TAMAR MENDOZA Final Result documented in this encounter Visit Diagnoses Not on filedocumented in this encounter Care Teams Hot Mill Observer Relationship Specialty Start Date End Date Parish Ruiz MD [address] [place] [address] PCP - General 12/25/16 09/02/20 Miscellaneous, Not In File PCP - General 09/03/2009/07 Bob Avitia MD [address] [place] [address] PCP - General Family Medicine 09/08/20 documented as of this encounter
--- OUTSIDE RECORDS SUMMARY | 2025-01-12 08:36 | XMS_ITS | Clinical Summary ---
Author Organization [facility] Address [address] [place] [address] Care Team Providers Care Physical Chemist Name Role Phone Bob Avitia MD Primary Care Provider [phone] Allergies Active Allergy Reactions Criticality Noted Date Comments Mold Medications ivabradine (CORLANOR) 5 mg tabletIndicatio ns:chronic heart failure Take 1 tablet (5 mg total) by mouth 2 (two) times a day with meals 60 tablet 9 Active Additional Information Patient not taking.Reported on 12/06/2018 spironolactone (ALDACTONE) 25 mg tabletIndicatio ns:Acute combined systolic and diastolic congestive heart failure (HCC) Take 1 tablet (25 mg total) by mouth daily 90 tablet 0 Active Additional Information Patient not taking.Reported on 10/06/2020 aspirin 81 mg enteric coated tablet Take 1 tablet (81 mg total) by mouth daily 30 tablet 11 1 Active carvediloL (COREG) 12.5 mg tabletIndicatio ns:HTN (hypertension), benign,Chronic HFrEF (heart failure with reduced ejection fraction) (HCC) Take 1 tablet (12.5 mg total) by mouth 2 (two) times a day with meals 180 tablet 3 1 Active furosemide (LASIX) 40 mg tabletIndicatio ns:Chronic HFrEF (heart failure with reduced ejection fraction) (HCC) Take 1 tablet (40 mg total) by mouth 2 (two) times a day 180 tablet 3 1 Active lisinopriL (PRINIVIL,ZESTR [place]) 40 mg tabletIndicatio ns:Type 2 diabetes mellitus without complication, without long-term current use of insulin (HCC),HTN (hypertension), benign,Chronic HFrEF (heart failure with reduced ejection fraction) (HCC) Take 1 tablet (40 mg total) by mouth 2 (two) times a day 180 tablet 3 1 Active metFORMIN (GLUCOPHAGE) 500 mg tabletIndicatio ns:Type 2 diabetes mellitus without complication, without long-term current use of insulin (HCC) Take 1 tablet (500 mg total) by mouth 2 (two) times a day with meals 180 tablet 3 1 Active simvastatin (ZOCOR) 40 mg tabletIndicatio ns:Type 2 diabetes mellitus without complication, without long-term current use of insulin (HCC),Chronic HFrEF (heart failure with reduced ejection fraction) (HCC) Take 1 tablet (40 mg total) by mouth nightly 90 tablet 3 1 Active Active Problems Problem Noted Date Diagnosed Date Class 2 severe obesity due t o excess calories with serious comorbidity and body mass index (BMI) of 36.0 to 36.9 in adult 10/06/2020 Assessment & Plan (10/06/2020 4:00 PM MEDICAL OFFICER PSYCHIATRY): Discussed with patient importance of weight control through either activity and or portion control Reports patient to continue to watch portions and choose low-calorie food Type 2 diabetes mellitus 02/04/2020 Assessment & Plan (04/26/2021 9:18 AM CDT): Stable, improving Patient has made some dietary changes, including eating lean meats as well as using air prior A1c today is at target of 6.5%; will restart metformin 500 mg b.i.d. Assessment & Plan (12/07/2020 11:55 AM CDT): Last a1c was at 6.8, without medications; encouraged continued dietary changes for low car diet; will start metformin 500 mg BID to help control blood sugars -noted to have elevated microalbumin in urine Assessment & Plan (10/06/2020 3:59 PM MEDICAL OFFICER PSYCHIATRY): Patient is eating a generally low-carbohydrate diet, encouraged patient to continue low-carbohydrate after he is able to afford larger meal Assessment & Plan (09/08/2020 4:21 PM MEDICAL OFFICER PSYCHIATRY): a1c is 6.8, encourage diet control as patient is not currently taking medications, continue to monitor COPD (chronic obstructive pulmonary disease) Assessment & Plan (04/26/2021 9:19 AM CDT): Stable, not well controlled May contribute to patient's dyspnea on exertion Will continue to monitor, evaluate when patient will be helpful for PFTs and can start COPD medication if necessary Assessment & Plan (09/08/2020 4:21 PM MEDICAL OFFICER PSYCHIATRY): Encourage smoking cessation Tobacco dependence due to cigarettes 12/06/2018 Assessment & Plan (04/26/2021 9:19 AM CDT): Currently smoking about 1/2 pack per day; encouraged patient to continue to look at complete cessation At this time will not start any medications Assessment & Plan (10/06/2020 3:59 PM MEDICAL OFFICER PSYCHIATRY): Improving, patient reports he has time to 6 cigarettes per day, will continue to encourage complete cessation Assessment & Plan (09/09/2020 3:20 PM MEDICAL OFFICER PSYCHIATRY): Not well controlled, patient continues to smoke, not interested in medication therapy at this time Chronic HFrEF (heart failure with reduced ejection fraction) ([facility]) 11/27/2018 Assessment & Plan (04/26/2021 9:18 AM CDT): NYHA function capacity II 2, objective assessment C Last echo performed in 2019 demonstrates LVEF of 20-30%, and patient reports some orthopnea; can work for 1-2 hours before requiring break, job is somewhat physically demanding Currently patient is not taking any medications due to insurance not appropriately covering medications All medications sent to [facility], reviewed [facility] 4 dollar list to ensure medications are included Will continue carvedilol 12.5, furosemide 40 mg b.i.d., lisinopril 40 mg At this time will hold spironolactone due to cost Will hold ivabradine as patient is not having any anginal symptoms Assessment & Plan (12/07/2020 11:57 AM CDT): No evidence of exacerbation or volume overload; encourage patient to continue with volume rstriction; will continue to monitor status as patient restarts medications -patient does not have limitations in activity NYHA: Class I Assessment & Plan (10/06/2020 3:58 PM MEDICAL OFFICER PSYCHIATRY): Not currently taking medication as patient cannot afford co-pay is Patient does not have any signs or symptoms of volume overload Will continue to monitor follow-up in 2 months after patient has been able to restart medications Assessment & Plan (09/08/2020 4:20 PM MEDICAL OFFICER PSYCHIATRY): No evidence of acute exacerbation, but not currently taking medications and bp is eelvated -restart medication, discussed importance of cardioprotective nature of carvedilol and lisnopril -encourage medication use, and will re-evaluate Assessment & Plan (11/29/2018 6:03 PM MEDICAL OFFICER PSYCHIATRY): Type unknown, suspect diastolic dysfunction. Echo pending. Pt still requiring treatment and changed to inpt status 11/27 Echo shows both systolic and diastolic dysfunction. EF 20%. Already on JESSICA and B-az and gradually improving. Cont current treatment. Change in EF and cardiology recommended cath. Done 11/29 HTN (hypertension), benign 11/27/2018 Assessment & Plan (04/26/2021 9:18 AM CDT): Not well controlled, will prescribe medicines based on [employer] list Coreg 12.5 mg b.i.d., lisinopril 40 mg b.i.d. Assessment & Plan (12/07/2020 11:55 AM CDT): Stable, has not been able to start medications, but blood pressure was well controlled today, will continue to monitor, encourage patient to start medications as he can -may have to adjust dose as patient's health changes. Assessment & Plan (10/06/2020 3:58 PM MEDICAL OFFICER PSYCHIATRY): Blood pressure remains elevated today at 168/108, patient has not been able to start medications as he cannot afford copays Will follow-up in 2 months after patient has been able to restart all of his medications Assessment & Plan (09/08/2020 4:19 PM MEDICAL OFFICER PSYCHIATRY): Not well controlled, bp elevated, not currently taking medications Assessment & Plan (11/28/2018 4:50 PM MEDICAL OFFICER PSYCHIATRY): Monitor. Will adjust meds depending on echo findings. Lisinopril increased 3/7 Abnormal finding on diagnostic imaging of extrem ity 07/13/2016 Overview (12/28/2016): Abnormal x-ray of extremity Resolved Problems Problem Noted Date Diagnosed Date Resolved Date Acute respiratory failure with hypoxia 11/27/2018 09/08/2020 Assessment & Plan (11/27/2018 9:08 PM MEDICAL OFFICER PSYCHIATRY): Wean as tolerated. Most likely due to CHF Tobacco use 07/13/2016 09/08/2020 Overview (12/28/2016): Tobacco use Immunizations Immunization Administration Dates Next Due Influenza, Unspecified 10/06/2020(Deferr ed: Patient Refused),09/08/2020(Deferred: Patient Refused),09/24/2019(Deferred: Patient Refused),09/24/2019(Deferred: Patient Refused),01/06/2019(Deferred: Patient Refused),12/06/2018(Deferred: Patient Refused),12/06/2018(Deferred: Patient Refused),09/24/2017(Deferred: Patient Refused),09/24/2017(Deferred: Patient Refused),09/24/2017(Deferred: Patient Refused) Pneumococcal Polysaccharide PPV23 02/12/2019 Medical History Medical History Date Comments Hypertension COPD (chronic obstructive pulmonary disease) (HC C) Family History Medical History Relation Name Comments Bladder Cancer Father Cancer, bladd er; Diabetes Father Hypertension Father Diabetes Mother Diabetes mellit us; Relation Name Status Comments Father Mother Alive Social History Tobacco Use Types Packs/Day Years Used Date Smoking Tobacco: Every Day Cigarettes 0.5 30 Started: 11/22/1988; Last attempted to quit: 11/22/2018 Smokeless Tobacco: Never Tobacco Cessation:Ready to Q uit: Yes; Counseling Given: Yes Comments:2 packs per week Alcohol Use Standard Drinks/Week Comments Not Currently 8 (1 standard drink = 0.6 oz pur e alcohol) AUDIT-C Answer Date Recorded Q1: How often do you have a drink containing alc ohol? Monthly or less 04/26/2021 Q2: How many drinks containi ng alcohol do you have on a typical day when you are drinking? 5 or 6 04/26/2021 Q3: How often do you have si x or more drinks on one occasion? Never 04/26/2021 PHQ-2 Answer Date Recorded PHQ-2 Total Score (If total score is 3 or more points, staff should administer the PHQ-9) 0 04/26/2021 Sex and Gender Information Value Date Recorded Sex Assigned at Not on file Legal Sex Male 4:56 PM MEDICAL OFFICER PSYCHIATRY Gender Identity Not on file Sexual Orientation Not on file Obstetrics History Last Filed Vital Signs Vital Sign Reading Time Taken Comments Blood Pressure 152/94 04/26/2021 8:24 AM CDT Pulse 85 04/26/2021 8:24 AM CDT Temperature 36.8 C (98.3 F) 04/26/2021 8:24 AM CDT Respiratory Rate 16 10/06/2020 2:05 PM MEDICAL OFFICER PSYCHIATRY Oxygen Saturation 95% 04/26/2021 8:24 AM CDT Inhaled Oxygen Concentration - - Weight 111.8 kg (246 lb 6.4 oz) 04/26/2021 8:24 AM CDT Height 172.7 cm (5' 8 ) 04/26/2021 8:24 AM CDT Body Mass Index 37.46 04/26/2021 8:24 AM CDT Plan of Treatment Not on file Insurance [employer] CHOICE Advance Directives For more information, please contact: [phone] * Full Code (Latest Code Status on File) Date Activated Date Inactivated Comments 11/26/2018 8:03 PM 11/30/2018 8:15 PM Care Teams Physical Chemist Relationship Specialty Start Date End Date Bob Avitia MD [address] [place] [address] PCP - General Family Medicine 09/08/20
--- OUTSIDE RECORDS SUMMARY | 2025-01-12 08:37 | XMS_ITS | Referral Summary ---
Author Organization [facility] Address [address] [place] [address] Care Team Providers Care Dental Mold Maker Name Role Phone Bob Avitia MD Primary Care Provider [phone] Allergies Active Allergy Reactions Criticality Noted Date [...] 10/06/2020 Assessment & Plan (10/06/2020 4:00 PM PROFESSIONAL APPLICATION DESIGNER): Discussed with patient importance of weight control [...] urine Assessment & Plan (10/06/2020 3:59 PM PROFESSIONAL APPLICATION DESIGNER): Patient is eating a generally low-carbohydrate diet, encouraged patient to continue low-carbohydrate after he is able to afford larger meal Assessment & Plan (09/08/2020 4:21 PM PROFESSIONAL APPLICATION DESIGNER): a1c is 6.8, encourage diet control as [...] necessary Assessment & Plan (09/08/2020 4:21 PM PROFESSIONAL APPLICATION DESIGNER): Encourage smoking cessation Tobacco dependence due to cigarettes 12/06/2018 Assessment & Plan (04/26/2021 9:19 AM CDT): Currently smoking about 1/2 pack per day; encouraged patient to continue to look at complete cessation At this time will not start any medications Assessment & Plan (10/06/2020 3:59 PM PROFESSIONAL APPLICATION DESIGNER): Improving, patient reports he has time to 6 cigarettes per day, will continue to encourage complete cessation Assessment & Plan (09/09/2020 3:20 PM PROFESSIONAL APPLICATION DESIGNER): Not well controlled, patient continues to smoke, not interested in medication therapy at this time Chronic HFrEF (heart failure with reduced ejection fraction) ([facility]) 11/27/2018 Assessment & Plan (04/26/2021 9:18 AM CDT): NYHA function capacity II 2, objective assessment C Last echo performed in 2019 demonstrates LVEF of 20-30%, and patient reports some orthopnea; can work for 1-2 hours before requiring break, job is somewhat physically demanding Currently patient is not taking any medications due to insurance not appropriately covering medications All medications sent to [facility], reviewed [facility] 4 dollar list to ensure medications are [...] I Assessment & Plan (10/06/2020 3:58 PM PROFESSIONAL APPLICATION DESIGNER): Not currently taking medication as patient cannot afford co-pay is Patient does not have any signs or symptoms of volume overload Will continue to monitor follow-up in 2 months after patient has been able to restart medications Assessment & Plan (09/08/2020 4:20 PM PROFESSIONAL APPLICATION DESIGNER): No evidence of acute exacerbation, but not currently taking medications and bp is eelvated -restart medication, discussed importance of cardioprotective nature of carvedilol and lisnopril -encourage medication use, and will re-evaluate Assessment & Plan (11/29/2018 6:03 PM PROFESSIONAL APPLICATION DESIGNER): Type unknown, suspect diastolic dysfunction. Echo pending. [...] well controlled, will prescribe medicines based on [employer] list Coreg 12.5 mg b.i.d., lisinopril 40 mg b.i.d. Assessment & Plan (12/07/2020 11:55 AM CDT): Stable, has not been able to start medications, but blood pressure was well controlled today, will continue to monitor, encourage patient to start medications as he can -may have to adjust dose as patient's health changes. Assessment & Plan (10/06/2020 3:58 PM PROFESSIONAL APPLICATION DESIGNER): Blood pressure remains elevated today at 168/108, patient has not been able to start medications as he cannot afford copays Will follow-up in 2 months after patient has been able to restart all of his medications Assessment & Plan (09/08/2020 4:19 PM PROFESSIONAL APPLICATION DESIGNER): Not well controlled, bp elevated, not currently taking medications Assessment & Plan (11/28/2018 4:50 PM PROFESSIONAL APPLICATION DESIGNER): Monitor. Will adjust meds depending on echo findings. Lisinopril increased 3/7 Abnormal finding on diagnostic imaging of extrem ity 07/13/2016 Overview (12/28/2016): Abnormal x-ray of extremity Resolved Problems Problem Noted Date Diagnosed Date Resolved Date Acute respiratory failure with hypoxia 11/27/2018 09/08/2020 Assessment & Plan (11/27/2018 9:08 PM PROFESSIONAL APPLICATION DESIGNER): Wean as tolerated. Most likely due to CHF Tobacco use 07/13/2016 09/08/2020 Overview (12/28/2016): Tobacco use Immunizations Immunization Administration Dates Next Due Influenza, Unspecified 10/06/2020(Deferr ed: Patient Refused),09/08/2020(Deferred: Patient Refused),09/24/2019(Deferred: Patient Refused),09/24/2019(Deferred: Patient Refused),01/06/2019(Deferred: Patient Refused),12/06/2018(Deferred: Patient Refused),12/06/2018(Deferred: Patient Refused),09/24/2017(Deferred: Patient Refused),09/24/2017(Deferred: Patient Refused),09/24/2017(Deferred: Patient Refused) Pneumococcal Polysaccharide PPV23 02/12/2019 Social History Tobacco Use Types Packs/Day Years [...] on file Legal Sex Male 4:56 PM PROFESSIONAL APPLICATION DESIGNER Gender Identity Not on file Sexual Orientation Not on file Last Filed Vital Signs Vital Sign Reading Time Taken Comments Blood Pressure 152/94 04/26/2021 8:24 AM CDT Pulse 85 04/26/2021 8:24 AM CDT Temperature 36.8 C (98.3 F) 04/26/2021 8:24 AM CDT Respiratory Rate 16 10/06/2020 2:05 PM PROFESSIONAL APPLICATION DESIGNER Oxygen Saturation 95% 04/26/2021 8:24 AM CDT Inhaled Oxygen Concentration - - Weight 111.8 kg (246 lb 6.4 oz) 04/26/2021 8:24 AM CDT Height 172.7 cm (5' 8 ) 04/26/2021 8:24 AM CDT Body Mass Index 37.46 04/26/2021 8:24 AM CDT Plan of Treatment Not on file Insurance [facility] [address] ACCESS CHOICE Advance Directives For more information, please contact: [phone] * Full Code (Latest Code Status on File) Date Activated Date Inactivated Comments 11/26/2018 8:03 PM 11/30/2018 8:15 PM Care Teams Dental Mold Maker Relationship Specialty Start Date End Date Bob Avitia MD [address] [place] [address] PCP - General Family Medicine 09/08/20
== END 2025-01-12 09:09 | disposition home or self-care (01) ==
PROVIDERS: Emergency Provider Registered Nurse
DX: J40 Bronchitis, not specified as acute or chronic (principal); F17.210 Nicotine dependence, cigarettes, uncomplicated; I11.0 Hypertensive heart disease with heart failure; I50.9 Heart failure, unspecified; E11.9 Type 2 diabetes mellitus without complications; E78.5 Hyperlipidemia, unspecified; J45.909 Unspecified asthma, uncomplicated; Z79.84 Long term (current) use of oral hypoglycemic drugs
CPT/HCPCS: 71046; 99213; G0463

== ENCOUNTER 2025-03-04 09:38 | Emergency (ER) | payer OTHER, SELFPAY ==
[2025-03-04 09:43] VITALS: BP 187/106; PULSE 81; RESP 18; TEMP 36.7; O2SAT 98
--- NOTE | 2025-03-04 09:54 | ED.EXTPRO ---
HPI - Extremity Problem General Chief complaint: Extremity Problem,Nontraumatic Stated complaint: Right Leg/Foot Swelling and Red Time Seen by Provider: 03/04/25 09:54 Source: patient Mode of arrival: ambulatory Limitations: no limitations History of Present Illness HPI Narrative: 59 yo M presents with c/o swelling to R lower leg that he noticed yesterday. Today woke up with redness and warmth with worsening of swelling to RLE. Denies pain. No injury. 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 Does a lot of standing and walking. All systems reviewed and negative except as noted above. Related Data Allergies Allergy/AdvReac Type Severity Reaction Status Date / Time MOLD Allergy Unknown Unknown Uncoded 03/04/25 10:05 Review of Systems Review of Systems: CONSTITUTIONAL: Denies fever, chills, or sweats. EYES: Denies visual changes, redness, or discharge. ENT: Denies rhinorrhea, congestion, sore throat, or otalgia. CARDIOVASCULAR: Denies chest pain, palpitations, or edema. RESPIRATORY: Denies cough or dyspnea. GASTROINTESTINAL: Denies abdominal pain, nausea, vomiting, or diarrhea. GENITOURINARY: Denies dysuria or hematuria. SKIN: Denies rash or itching. reports redness, warmth, swelling to RLE MUSCULOSKELETAL: Denies back pain, joint pain, or myalgia. NEUROLOGIC: Denies headache, numbness, or weakness. PSYCHIATRIC: Denies anxiety or depression. All other systems reviewed are negative, except as documented in HPI. [facility] Past Medical History Medical History Heart disease CHF exacerbation Allergies Asthma Diabetes Hyperlipidemia Hypertension CHF (congestive heart failure) Surgical History Surgical History No pertinent past surgical history Family History Family History Mother Family history non-contributory Father Diabetes mellitus Hypertension Heart disease Sibling Cancer Social History Social History Smoking packs per day: 0.5 Smoking cigarettes per day: 10.0 Smoking status: Current every day smoker Alcohol intake: never Substance use: former Substance use type: marijuana Lack of Transportation: No Lack of Food: Never True Concerned About Future Housing: No Difficulty Paying for Meds: YES Currently Unemployed: No Education: High School Diploma/GED Difficulty w/ Childcare or Family Care: No Living arrangements: alone Occupation/Education: occupation Additional occupation/education comments: [employer] Gender identity (if verbalized by the patient): Male Spiritual care concerns: No Agree to blood products: Yes Comments At time of signature, agree with nursing past medical, surgical, social and family history. There is no relevant family history pertinent to the presenting complaint. Exam Narrative: GENERAL: This is a well-nourished, well-developed patient, in no apparent distress. HEAD: normocephalic, atraumatic. EYES: PERRL. Sclera clear/white. Vision is grossly intact. EARS: External ears normal NOSE: External nose normal NECK: Neck supple, non-tender without lymphadenopathy, masses or thyromegaly. CARDIOVASCULAR: Regular rate and rhythm without murmurs, gallops, or rubs. RESPIRATORY: Clear to auscultation. Breath sounds equal bilaterally. No wheezes, rales, or rhonchi. SKIN: warm, Dry, intact with no suspicious lesions or rash, good texture and turgor. NEURO: awake, alert, and oriented to person, place and time. There were no obvious focal neurologic abnormalities. EXTREMITIES: mild swelling to RLE, worse to ankle and foot. erythema to lower aspect of RLE to anterior, medial and lateral aspects. warmth on palpation. bilateral calves 40cm diameter. Course Course Level of Care: Express Care Visit Vital Signs Vital signs: Vital Signs Temperature 36.7 C 03/04/25 09:43 Pulse Rate 81 03/04/25 09:43 Respiratory Rate 18 03/04/25 09:43 Blood Pressure 187/106 H 03/04/25 09:43 Pulse Oximetry 98 03/04/25 09:43 Oxygen Delivery Room Air 03/04/25 09:43 Temperature 36.7 C 03/04/25 09:43 Pulse Rate 82 03/04/25 10:05 Respiratory Rate 18 03/04/25 09:43 Blood Pressure 190/108 H 03/04/25 10:05 Pulse Oximetry 98 03/04/25 09:43 Oxygen Delivery Room Air 03/04/25 09:43 Reviewed MDM - Extremity (Nontraumatic) MDM Narrative Medical decision making narrative: will treat patient with antibiotic for cellulitis. Patient is alert, nontoxic. Okay for outpatient therapy. Recommend follow-up with primary care physician in 1 week due to elevated blood pressure at [facility]. Patient states he has been taking all medications as prescribed. No chest pain or shortness of breath. Differential Diagnosis Differential diagnosis: Likely cellulitis, superficial thrombophlebitis, lower extremity edema and deep vein thrombosis of lower extremity Discharge Plan Discharge Clinical Impression: Cellulitis of right leg, Hypertension, uncontrolled Patient Disposition: Home Condition: Stable Instructions: Antibiotic Form, Cellulitis (ED) Additional Instructions: take antibiotic as prescribed until gone. Take Tylenol every 6-8 hours as needed for pain. Elevate when at rest. See your primary care physician if symptoms are not improving. For any worsening of symptoms go to the ER. your blood pressure was elevated today. Follow-up with your primary care physician within the next couple of days. Patient Language: Romansh Prescriptions: New cephalexin 500 mg capsule 500 mg PO QID 10 Days Qty: 40 0RF No Action simvastatin 40 mg tablet See Rx Instructions .ROUTE .COMPLEX Qty: 90 3RF Dose Instruction: TAKE 1 TABLET BY MOUTH EVERY DAY Rx Instructions: TAKE 1 TABLET BY MOUTH EVERY DAY albuterol sulfate 90 mcg/actuation HFA aerosol inhaler See Rx Instructions .ROUTE .COMPLEX Qty: 8.5 6RF Dose Instruction: INHALE 2 PUFFS 4 TIMES A DAY NEEDED FOR SHORTNESS OF BREATH OR FOR WHEEZE Rx Instructions: INHALE 2 PUFFS 4 TIMES A DAY NEEDED FOR SHORTNESS OF BREATH OR FOR WHEEZE furosemide 40 mg tablet 40 mg PO DAILY Qty: 90 3RF lisinopril 40 mg tablet 40 mg PO DAILY Qty: 90 3RF metformin 500 mg tablet 500 mg PO BID Qty: 180 3RF Follow-up/Referrals: Adam Anton MD [Primary Care Provider] - 3 Days Stand Alone Forms: Work/School Release IP Time of Disposition: 10:03
[2025-03-04 10:05] VITALS: BP 190/108; PULSE 82
--- OUTSIDE RECORDS SUMMARY | 2025-03-04 10:35 | XMS_ITS | Clinical Summary ---
Author Organization [facility] Address [address] [place] [address] Care Team Providers Care Cutting Room Supervisor Name Role Phone Bob Avitia MD Primary Care Provider [phone] Allergies Active Allergy Reactions Criticality Noted Date [...] 10/06/2020 Assessment & Plan (10/06/2020 4:00 PM SHIP PILOT DISPATCHER): Discussed with patient importance of weight control [...] urine Assessment & Plan (10/06/2020 3:59 PM SHIP PILOT DISPATCHER): Patient is eating a generally low-carbohydrate diet, encouraged patient to continue low-carbohydrate after he is able to afford larger meal Assessment & Plan (09/08/2020 4:21 PM SHIP PILOT DISPATCHER): a1c is 6.8, encourage diet control as [...] necessary Assessment & Plan (09/08/2020 4:21 PM SHIP PILOT DISPATCHER): Encourage smoking cessation Tobacco dependence due to cigarettes 12/06/2018 Assessment & Plan (04/26/2021 9:19 AM CDT): Currently smoking about 1/2 pack per day; encouraged patient to continue to look at complete cessation At this time will not start any medications Assessment & Plan (10/06/2020 3:59 PM SHIP PILOT DISPATCHER): Improving, patient reports he has time to 6 cigarettes per day, will continue to encourage complete cessation Assessment & Plan (09/09/2020 3:20 PM SHIP PILOT DISPATCHER): Not well controlled, patient continues to smoke, not interested in medication therapy at this time Chronic HFrEF (heart failure with reduced ejection fraction) ([facility]) 11/27/2018 Assessment & Plan (04/26/2021 9:18 AM CDT): NYHA function capacity II 2, objective assessment C Last echo performed in 2019 demonstrates LVEF of 20-30%, and patient reports some orthopnea; can work for 1-2 hours before requiring break, job is somewhat physically demanding Currently patient is not taking any medications due to insurance not appropriately covering medications All medications sent to [facility], reviewed [employer] 4 dollar list to ensure medications are [...] I Assessment & Plan (10/06/2020 3:58 PM SHIP PILOT DISPATCHER): Not currently taking medication as patient cannot afford co-pay is Patient does not have any signs or symptoms of volume overload Will continue to monitor follow-up in 2 months after patient has been able to restart medications Assessment & Plan (09/08/2020 4:20 PM SHIP PILOT DISPATCHER): No evidence of acute exacerbation, but not currently taking medications and bp is eelvated -restart medication, discussed importance of cardioprotective nature of carvedilol and lisnopril -encourage medication use, and will re-evaluate Assessment & Plan (11/29/2018 6:03 PM SHIP PILOT DISPATCHER): Type unknown, suspect diastolic dysfunction. Echo pending. [...] well controlled, will prescribe medicines based on [employer] list Coreg 12.5 mg b.i.d., lisinopril 40 mg b.i.d. Assessment & Plan (12/07/2020 11:55 AM CDT): Stable, has not been able to start medications, but blood pressure was well controlled today, will continue to monitor, encourage patient to start medications as he can -may have to adjust dose as patient's health changes. Assessment & Plan (10/06/2020 3:58 PM SHIP PILOT DISPATCHER): Blood pressure remains elevated today at 168/108, patient has not been able to start medications as he cannot afford copays Will follow-up in 2 months after patient has been able to restart all of his medications Assessment & Plan (09/08/2020 4:19 PM SHIP PILOT DISPATCHER): Not well controlled, bp elevated, not currently taking medications Assessment & Plan (11/28/2018 4:50 PM SHIP PILOT DISPATCHER): Monitor. Will adjust meds depending on echo findings. Lisinopril increased 3/7 Abnormal finding on diagnostic imaging of extrem ity 07/13/2016 Overview (12/28/2016): Abnormal x-ray of extremity Resolved Problems Problem Noted Date Diagnosed Date Resolved Date Acute respiratory failure with hypoxia 11/27/2018 09/08/2020 Assessment & Plan (11/27/2018 9:08 PM SHIP PILOT DISPATCHER): Wean as tolerated. Most likely due to [...] on file Legal Sex Male 4:56 PM SHIP PILOT DISPATCHER Gender Identity Not on file Sexual Orientation Not on file Obstetrics History Last Filed Vital Signs Vital Sign Reading Time Taken Comments Blood Pressure 152/94 04/26/2021 8:24 AM CDT Pulse 85 04/26/2021 8:24 AM CDT Temperature 36.8 C (98.3 F) 04/26/2021 8:24 AM CDT Respiratory Rate 16 10/06/2020 2:05 PM SHIP PILOT DISPATCHER Oxygen Saturation 95% 04/26/2021 8:24 AM CDT Inhaled Oxygen Concentration - - Weight 111.8 kg (246 lb 6.4 oz) 04/26/2021 8:24 AM CDT Height 172.7 cm (5' 8) 04/26/2021 8:24 AM CDT Body Mass Index 37.46 04/26/2021 8:24 AM CDT Plan of Treatment Not on file Insurance [employer] CHOICE Advance Directives For more information, please contact: [phone] * Full Code (Latest Code Status on File) Date Activated Date Inactivated Comments 11/26/2018 8:03 PM 11/30/2018 8:15 PM Care Teams Cutting Room Supervisor Relationship Specialty Start Date End Date Bob Avitia MD [address] [place] [address] PCP - General Family Medicine 09/08/20
--- OUTSIDE RECORDS SUMMARY | 2025-03-04 10:35 | XMS_ITS | Encounter Summary ---
Author Organization [facility] Address [address] [facility] [address] [place] [id number] Care Team Providers Care Wedding Photographer Name Role Phone Parish Ruiz MD Primary Care Provider [phone] Miscellaneous, Not In File Primary Care Provider Unavailable Bob Avitia MD Primary Care Provider [phone] Encounter Details Date Type Department Care Team (Late st Contact Info) Description 12/27/2016 Orders Only [facility] Andrés Dave MD [address] [place] [id number] Social History Tobacco Use Types Packs/Day Years Used Date Smoking Tobacco: Heavy Smoker Comments:Smoking History Pac ks/day: 1 Packs Alcohol Use Standard Drinks/Week Comments Yes 0 (1 standard drink = 0.6 oz pur e alcohol) Sex and Gender Information Value Date Recorded Sex Assigned at Not on file Legal Sex Male 4:56 PM COYOTE HUNTER Gender Identity Not on file Sexual Orientation [...] on filedocumented in this encounter Care Teams Wedding Photographer Relationship Specialty Start Date End Date Parish Ruiz MD [address] [place] [address] PCP - General 12/25/16 09/02/20 Miscellaneous, Not In File PCP - General 09/03/2009/07 Bob Avitia MD [address] [place] [address] PCP - General Family Medicine 09/08/20 documented as of this encounter
--- OUTSIDE RECORDS SUMMARY | 2025-03-04 10:35 | XMS_ITS | Clinical Summary ---
Author Organization [facility] Address [address] [place] [address] Phone Care Team Providers Care Assurance Officer Name Role Phone Parish Ruiz MD Unavailable [phone] Allergies No known active allergies Medications aspirin [...] long-term current use of insulin ([facility]) Take 1 Tab by mouth daily. [...] 8:10 AM CDT Height 172.7 cm (5' 8) 03/12/2020 8:10 AM CDT Body Mass Index 38.04 03/12/2020 8:10 AM CDT Plan of Treatment Health Maintenance Due Date Last Done Comments Diabetes: Eye Exam 1965 Diabetes: Foot Exam 1965 Hepatitis C Virus (HCV) Screening 1965 TdaP Immunization 1965 Hepatitis B Immunization (1 of 3 - 19+ 3-dose series) 1984 Cologuard 2010 Colonoscopy 2010 Colorectal Cancer Screening 2010 Immunochemical Fecal Occult Blood 2010 Zoster Immunization (1 of 2) 2015 Pneumococcal Immunization (50+ years) (2 of 2 - PCV) 02/13/2020 02/12/2019 Diabetes: Hemoglobin A1c 08/06/2020 020, 06/24/2019, 11/28/2018 Diabetes: Nephropathy Screening 02/03/2021 02/04/2020, 02/04/2020, 06/24/2019, Additional history exists SARS-COV-2 Immunization ( - 2023- season) 2024 Influenza Immunization (Season Ended) 2025 Respiratory Syncytial Virus (RSV) Immunization (Adult) (1 - 1-dose 75+ series) 2040 Pneumococcal Immunization Combined Discontinued 02/12/2019 PSA Discussion Discontinued 06/24/2019 Human Papillomavirus (HPV) Immunization Aged Out No longer eligible based on patient's age to complete this topic Meningococcal Immunization (ACWY) Aged Out No longer [...] - 6.0 % 02/04/2020 12:24 PM CDT [facility] Est Average Glucose 154.2 mg/dL 02/04/2020 12:24 PM CDT [facility] Blood specimen (specimen) Venipuncture / Unknown 02/04/2020 9:20 AM CDT 02/04/2020 9:20 AM CDT Narrative [facility] - 02/04/2020 12:24 PM CDT HEMOGLOBIN A1C: DIABETIC PATIENTS: WELL-CONTROLLED: 6.2 - 7.0 INTERMEDIATE WELL-CONTROLLED: 7.0 - 9.0 POORLY-CONTROLLED: >9.0 us Dalton Chahal APRN, AD OPERATIONS SPECIALIST CHEMISTRY ORDERA BLES Final Result [facility] [address] [place] [address] * (ABNORMAL) CMP (COMPREHENSIVE METABOLIC PANEL) (02/04/2020 9:20 AM CDT) SODIUM 139 136 - 144 mmol/L 02/04/2020 1:00 PM CDT [facility] POTASSIUM 4.6 3.5 - 5.1 mmol/L 02/04/2020 1:00 PM CDT [facility] CHLORIDE 100 100 - 110 mmol/L 02/04/2020 1:00 PM [facility] CO2, VENOUS 29 22 - 32 mmol/L 02/04/2020 1:00 PM T [facility] ANION GAP 14.6 8.0 - 20.0 mmol/L 02/04/2020 1:00 PM T [facility] GLUCOSE 117(H) 70 - 99 mg/dL 02/04/2020 1:00 PM T [facility] BUN 14 6 - 20 mg/dL 02/04/2020 1:00 PM [facility] CREATININE, BLOOD 0.84 0.80 - 1.30 mg/dL 02/04/2020 1:00 PM [facility] BUN/CREATININE RATIO 17 12 - 20 ratio 02/04/2020 1:00 PM [facility] TOTAL PROTEIN 7.8 6.0 - 8.3 g/dL 02/04/2020 1:00 PM [facility] ALBUMIN 4.5 3.5 - 5.2 g/dL 02/04/2020 1:00 PM [facility] Comment: The colormetric methods used for the determination of Albumin may lead to falsely elevated test results in patients suffering from renal failure or insufficiency due to interference with other proteins. A/G RATIO 1.4 1.0 - 2.0 02/04/2020 1:00 PM T [facility] CALCIUM 9.9 8.9 - 10.3 mg/dL 02/04/2020 1:00 PM T [facility] T BILI 0.3 <=1.2 mg/dL 02/04/2020 1:00 PM [facility] SGOT (AST) 15 <=40 U/L 02/04/2020 1:00 PM T [facility] SGPT (ALT) 23 <=41 U/L 02/04/2020 1:00 PM CDT [facility] ALKALINE PHOSPHATASE 59 40 - 130 U/L 02/04/2020 1:00 PM CDT [facility] GFR, EST. NONAFRICAN >60 >=60 02/04/2020 1:00 PM CDT [facility] GFR, EST. >60 >=60 020 1:00 PM CDT [facility] Comment: Creatinine Clearance is the preferred criteria for selecting drug dose adjustments in renally impaired patients. The GFR is provided as additional pertinent clinical information. GFR is reported in mL/min/1.73 sq m. Blood specimen (specimen) Venipuncture / Unknown 02/04/2020 9:20 AM CDT 02/04/2020 9:20 AM CDT Dalton Chahal APRN, CNP CHEMISTRY ORDERA BLES Final Result [facility] [address] [place] [address] * PSA SCREEN (06/24/2019 9:25 AM CDT) PSA SCREEN, TOTAL 0.53 <=4.00 ng/mL 06/24/2019 3:34 PM CDT [facility] Blood specimen (specimen) Venipuncture / Unknown 06/24/2019 9:25 AM CDT 06/24/2019 1:22 PM CDT Narrative [facility] - 06/24/2019 3:34 PM CDT PSA NOTE: The PSA value should be used in conjunction with information available from clinical evaluation and other diagnostic procedures. Dalton Chahal APRN, MYKEL CHEMISTRY ORDERA BLES Final Result Performing Organization Address City/[facility]/ZIP Co de Phone Number [facility] [address] [place] [address] from Last 3 Months or Most Recently Relevant to Health Maintenance Insurance Care Teams Assurance Officer Relationship Specialty Start Date End [place] [address] Internal Medicine 12/25/16
--- OUTSIDE RECORDS SUMMARY | 2025-03-04 10:35 | XMS_ITS | Encounter Summary ---
Author Organization [facility] Address [address] [place] [id number] Care Team Providers Care Inspector Balance Bridge Name Role Phone Parish Ruiz MD Primary Care Provider [phone] Miscellaneous, Not In File Primary Care Provider Unavailable Bob Avitia MD Primary Care Provider [phone] Encounter Details Date Type Department Care Team (Late st Contact Info) Description 12/25/2016 Orders Only [facility] MD [address] [place] [id number] Social History Tobacco Use Types Packs/Day Years Used Date Smoking Tobacco: Heavy Smoker Comments:Smoking History Pac ks/day: 1 Packs Alcohol Use Standard Drinks/Week Comments Yes 0 (1 standard drink = 0.6 oz pur e alcohol) Sex and Gender Information Value Date Recorded Sex Assigned at Not on file Legal Sex Male 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
--- OUTSIDE RECORDS SUMMARY | 2025-03-04 10:36 | XMS_ITS | Referral Summary ---
Author Organization [facility] Address [address] [place] [address] Care Team Providers Care Settlement Technician Name Role Phone Bob Avitia MD Primary Care Provider [phone] Allergies Active Allergy Reactions Criticality Noted Date [...] 10/06/2020 Assessment & Plan (10/06/2020 4:00 PM LEGAL PARAPROFESSIONAL): Discussed with patient importance of weight control [...] urine Assessment & Plan (10/06/2020 3:59 PM LEGAL PARAPROFESSIONAL): Patient is eating a generally low-carbohydrate diet, encouraged patient to continue low-carbohydrate after he is able to afford larger meal Assessment & Plan (09/08/2020 4:21 PM LEGAL PARAPROFESSIONAL): a1c is 6.8, encourage diet control as [...] necessary Assessment & Plan (09/08/2020 4:21 PM LEGAL PARAPROFESSIONAL): Encourage smoking cessation Tobacco dependence due to cigarettes 12/06/2018 Assessment & Plan (04/26/2021 9:19 AM CDT): Currently smoking about 1/2 pack per day; encouraged patient to continue to look at complete cessation At this time will not start any medications Assessment & Plan (10/06/2020 3:59 PM LEGAL PARAPROFESSIONAL): Improving, patient reports he has time to 6 cigarettes per day, will continue to encourage complete cessation Assessment & Plan (09/09/2020 3:20 PM LEGAL PARAPROFESSIONAL): Not well controlled, patient continues to smoke, not interested in medication therapy at this time Chronic HFrEF (heart failure with reduced ejection fraction) ([facility]) 11/27/2018 Assessment & Plan (04/26/2021 9:18 AM CDT): NYHA function capacity II 2, objective assessment C Last echo performed in 2019 demonstrates LVEF of 20-30%, and patient reports some orthopnea; can work for 1-2 hours before requiring break, job is somewhat physically demanding Currently patient is not taking any medications due to insurance not appropriately covering medications All medications sent to [facility], reviewed [facility] 4 dollar list to ensure medications are [...] I Assessment & Plan (10/06/2020 3:58 PM LEGAL PARAPROFESSIONAL): Not currently taking medication as patient cannot afford co-pay is Patient does not have any signs or symptoms of volume overload Will continue to monitor follow-up in 2 months after patient has been able to restart medications Assessment & Plan (09/08/2020 4:20 PM LEGAL PARAPROFESSIONAL): No evidence of acute exacerbation, but not currently taking medications and bp is eelvated -restart medication, discussed importance of cardioprotective nature of carvedilol and lisnopril -encourage medication use, and will re-evaluate Assessment & Plan (11/29/2018 6:03 PM LEGAL PARAPROFESSIONAL): Type unknown, suspect diastolic dysfunction. Echo pending. [...] well controlled, will prescribe medicines based on [employer] dollCynergen list Coreg 12.5 mg b.i.d., lisinopril 40 mg b.i.d. Assessment & Plan (12/07/2020 11:55 AM CDT): Stable, has not been able to start medications, but blood pressure was well controlled today, will continue to monitor, encourage patient to start medications as he can -may have to adjust dose as patient's health changes. Assessment & Plan (10/06/2020 3:58 PM LEGAL PARAPROFESSIONAL): Blood pressure remains elevated today at 168/108, patient has not been able to start medications as he cannot afford copays Will follow-up in 2 months after patient has been able to restart all of his medications Assessment & Plan (09/08/2020 4:19 PM LEGAL PARAPROFESSIONAL): Not well controlled, bp elevated, not currently taking medications Assessment & Plan (11/28/2018 4:50 PM LEGAL PARAPROFESSIONAL): Monitor. Will adjust meds depending on echo findings. Lisinopril increased 3/7 Abnormal finding on diagnostic imaging of extrem ity 07/13/2016 Overview (12/28/2016): Abnormal x-ray of extremity Resolved Problems Problem Noted Date Diagnosed Date Resolved Date Acute respiratory failure with hypoxia 11/27/2018 09/08/2020 Assessment & Plan (11/27/2018 9:08 PM LEGAL PARAPROFESSIONAL): Wean as tolerated. Most likely due to [...] on file Legal Sex Male 4:56 PM LEGAL PARAPROFESSIONAL Gender Identity Not on file Sexual Orientation Not on file Last Filed Vital Signs Vital Sign Reading Time Taken Comments Blood Pressure 152/94 04/26/2021 8:24 AM CDT Pulse 85 04/26/2021 8:24 AM CDT Temperature 36.8 C (98.3 F) 04/26/2021 8:24 AM CDT Respiratory Rate 16 10/06/2020 2:05 PM LEGAL PARAPROFESSIONAL Oxygen Saturation 95% 04/26/2021 8:24 AM CDT Inhaled Oxygen Concentration - - Weight 111.8 kg (246 lb 6.4 oz) 04/26/2021 8:24 AM CDT Height 172.7 cm (5' 8) 04/26/2021 8:24 AM CDT Body Mass Index 37.46 04/26/2021 8:24 AM CDT Plan of Treatment Not on file Insurance [facility] [employer] [address] ACCESS CHOICE Advance Directives For more information, please contact: [phone] * Full Code (Latest Code Status on File) Date Activated Date Inactivated Comments 11/26/2018 8:03 PM 11/30/2018 8:15 PM Care Teams Settlement Technician Relationship Specialty Start Date End Date Bob Avitia MD [address] [place] [address] PCP - General Family Medicine 09/08/20
== END 2025-03-04 10:05 | disposition home or self-care (01) ==
PROVIDERS: Emergency Provider Nurse Practitioner Family; PCP Family Medicine
DX: L03.115 Cellulitis of right lower limb (principal); I11.0 Hypertensive heart disease with heart failure; I50.9 Heart failure, unspecified; E11.9 Type 2 diabetes mellitus without complications; Z79.84 Long term (current) use of oral hypoglycemic drugs; E78.5 Hyperlipidemia, unspecified; F17.210 Nicotine dependence, cigarettes, uncomplicated
CPT/HCPCS: 99213; G0463